=== PATIENT | male | born 1985 | race Caucasian/White ===

== ENCOUNTER 2017-07-31 09:40 | Emergency (ER) | payer OTHER ==
[2017-07-31] MEDS ORDERED: Lidocaine 1% 20 ML MDV ONE (09:45)
[2017-07-31] MEDS ORDERED: Morphine 4 MG/ML Carpuject ONE (10:01)
[2017-07-31] MEDS ORDERED: CEFAZOLIN 1 GM VIAL ONE (10:38)
[2017-07-31] MEDS ORDERED: Sterile Water 100 ML ONE (10:38)
[2017-07-31] MEDS ORDERED: Bacitracin Zinc 1 Packet ONE (10:54)
--- NOTE | 2017-07-31 18:25 | RAD ---
RIGHT HAND THREE VIEWS 07/31/2017 A comminuted fracture is seen through the terminal tuft of the distal phalanx of the ring finger. Ad ditionally, there is a fracture at the base of the distal phalanx that extends into the DIP joint. T he latter is nondisplaced. The remainder of the hand and wrist appear intact. IMPRESSION: Fractures of the distal phalanx of the ring finger. POS: HOME
== END 2017-07-31 11:11 | disposition home or self-care (01) ==
LOC: BURERS 09:40
DX: S67.194A Crushing injury of right ring finger, initial encounter (principal); S62.664B Nondisplaced fracture of distal phalanx of right ring finger, initial encounter for open fracture; F17.220 Nicotine dependence, chewing tobacco, uncomplicated; W31.9XXA Contact with unspecified machinery, initial encounter; Y99.0 Civilian activity done for income or pay
CPT/HCPCS: 90471; 96372; J0690; J2001; J2270